=== PATIENT | male | born 1940 | race Two or more races ===

== ENCOUNTER 2016-11-26 19:31 | Emergency (ER) | payer MEDICARE, MEDICAID ==
[~2016-11-26] VITALS: Ht 167.6 cm; Wt 61.2 kg
[2016-11-26 20:31] VITALS: BP 138/71
[2016-11-26] MEDS ORDERED: TYLENOL EXTRA500 MG ORAL (22:06)
[2016-11-26 22:38] VITALS: BP 142/74
[2016-11-26 22:40] VITALS: BP 142/74
--- NOTE | 2016-11-27 12:57 | Diagnostic Imaging Report ---
Indication: Pain Comparison: None Findings: 3 views of the left ankle obtained. No acute fracture, malalignment, periostitis, or osteochondral defects are identified. Soft tissues are unremarkable. Vascular calcifications are noted posterior to the ankle. Impression: No acute findings
--- NOTE | 2016-11-27 13:31 | Diagnostic Imaging Report ---
Indication: Pain Comparison: None Findings: 3 views of the left foot were obtained. There is narrowing of the first MTP joint with subchondral sclerosis. No fracture or malalignment identified. Soft tissues are unremarkable. Os trigonum noted. Some vascular calcifications are present. Impression: No acute injury
--- NOTE | 2016-11-29 14:52 | Emergency Room Report ---
History of Present Illness General Chief Complaint: General Complaint Source: Patient Present Illness HPI 76-year-old no presents to ED complaining of left ankle pain. States earlier today he had a mechanical trip, twisting his ankle. Denies hitting his head or LOC. Denies falling. He notes pain to his left ankle. Pain as throbbing, 5/10 , nonradiating. No aggravating or relieving factors. And he notes pain but is able to bear weight. Denies any other associated symptoms Allergies: Coded Allergies: No Known Allergies (Unverified , 11/26/16) Patient History Past Medical History: HTN Past Surgical History: none Pertinent Family History: none Social History: Denies: alcohol use, drug use, smoking Immunizations: UTD Reviewed Nursing Documentation: PMH: Agreed, PSxH: Agreed Nursing Documentation-PMH Hx Hypertension: Yes Review of Systems All Other Systems: negative except mentioned in HPI Physical Exam Vital Signs Date Time Temp Pulse Resp B/P Pulse Ox O2 Delivery O2 Flow Rate FiO2 11/26/16 20:06 97.5 54 16 138/71 97 Room Air Sp02 EP Interpretation: reviewed, normal General Appearance: no apparent distress, alert, GCS 15, non-toxic Head: normocephalic Eyes: bilateral eye PERRL, bilateral eye normal inspection ENT: normal ENT inspection Neck: normal inspection Respiratory: normal inspection Cardiovascular #1: normal inspection Gastrointestinal: normal inspection Rectal: deferred Genitourinary: no CVA tenderness Musculoskeletal: tender - L ankle Neurologic: alert, oriented x3, responsive, motor strength/tone normal, sensory intact, speech normal Psychiatric: normal inspection Skin: normal inspection Lymphatic: normal inspection Procedures Splinting Splinting : Consent: Verbal Pre-Made Type: ANGELA wrap - L ankle Pre-Proc Neuro Vasc Exam: normal Post-Proc Neuro Vasc Exam: normal Patient Tolerated: Well Complications: None Medical Decision Making Diagnostic Impression: Primary Impression: Ankle sprain Qualified Codes: S93.402A - Sprain of unspecified ligament of left ankle, initial encounter ER Course Hospital Course 76-year-old M presents to ED complaining of L ankle pain s/p twisting injury Differential diagnoses include: Fracture, dislocation, sprain, contusion Clinical course Patient placed on stretcher. After initial history and physical, I ordered Xrays of L foot/ankle. patient declined pain medications Xrays prelim read shows no acute fracture/dislocation. placed in angela wrap, given cane Diagnosis - ankle sprain Stable and discharged to home with prescription for Tylenol. apply ice, keep elevated. weight bear as tolerated. Followup with PMD. Return to ED if symptoms recur or worsen Other X-Ray Diagnostic Results Other X-Ray Diagnostic Results : X-Ray Ordered: Left foot, left ankle EP Interpretation: Yes Findings: no fractures, no dislocation, no soft tissue swelling Number of Views: 3 Other Impression Left foot-No fracture, no dislocation, no soft tissue swelling Left ankle-No fracture, no dislocation, no soft tissue swelling Last Vital Signs Date Time Temp Pulse Resp B/P Pulse Ox O2 Delivery O2 Flow Rate FiO2 11/26/16 22:40 97.6 82 17 142/74 98 Room Air Status: improved Disposition: HOME, SELF-CARE Condition: Stable Scripts Acetaminophen* (TYLENOL EXTRA STRENGTH*) 500 Mg Tablet 500 MG ORAL Q8H Y for Prn Headache/Temp > 101, #30 TAB 0 Refills Prov: RIVKA GOLDSTEIN M.D. 11/26/16 Referrals: NOT CHOSEN IPA/,REFERRING (PCP) Patient Instructions: Ankle Sprain, [id number] RIVKA GOLDSTEIN M.D. Nov 29, 2016 14:52
== END 2016-11-26 22:40 | disposition home or self-care (01) ==
LOC: EMR 22:10
DX: S93.402A Sprain of unspecified ligament of left ankle, initial encounter (principal); W19.XXXA Unspecified fall, initial encounter; Y93.9 Activity, unspecified; Y92.9 Unspecified place or not applicable; I10 Essential (primary) hypertension
CPT/HCPCS: 99283